=== PATIENT | male | born 1960 | race Caucasian/White ===

== ENCOUNTER 2020-01-02 10:55 | Day surgery (SDC) | payer OTHER ==
[~2020-01-02] VITALS: Ht 172.7 cm; Wt 87.1 kg
[~2020-01-02 10:55] MED LIST: ATOR1TAB19 PO; FLOM0.4C39 PO; GABA-1171 PO; META1TAB22 PO; OMEP40CA97 PO; QC A650T3 PO; TIZA2CAP PO; TRAM50TA2 PO; TRAZ-252 PO
[2020-01-02] MEDS ORDERED: NS 1,000 ML IV ONE (11:45)
[2020-01-02] MEDS ORDERED: LIDOCAINE 2% 100MG/5ML SDV (FOR ANES.) As Ordered ONE (12:28)
[2020-01-02] MEDS ORDERED: propofoL 200 MG/20 ML VIAL As Ordered ONE ×2 (12:28→12:56)
--- NOTE | 2020-01-02 12:59 | ROOR ---
Patient Name: Aric Bain Procedure Date: 01/02/2020 12:35 PM Date of : 1960 Age: 59 Room: [facility] Gender: Male Note Status: Finalized Procedure: Total Colonoscopy to Cecum Indications: Screening for colorectal malignant neoplasm Providers: Catracho Haq MD Referring MD: MARIYA CASTRO MD Requesting Provider: Medicines: Monitored Anesthesia Care Complications: No immediate complications. Procedure: Pre-Anesthesia Assessment: - The heart rate, respiratory rate, oxygen saturations, blood pressure, adequacy of pulmonary ventilation, and response to care were monitored throughout the procedure. The Colonoscope was introduced through the anus and advanced to the cecum, identified by appendiceal orifice and ileocecal valve. The colonoscopy was performed without difficulty. The patient tolerated the procedure well. The quality of the bowel preparation was excellent. Findings: The perianal and digital rectal examinations were normal. Non-bleeding internal hemorrhoids were found during retroflexion. The hemorrhoids were small and Grade I (internal hemorrhoids that do not prolapse). Scattered small-mouthed diverticula were found in the recto-sigmoid colon, sigmoid colon and descending colon. The exam was otherwise without abnormality on direct and retroflexion views. Impression: - Non-bleeding internal hemorrhoids. - Diverticulosis in the recto-sigmoid colon, in the sigmoid colon and in the descending colon. - The examination was otherwise normal on direct and retroflexion views. - No specimens collected. - The exam was otherwise normal to the cecum. Recommendation: - Patient has a contact number available for emergencies. The signs and symptoms of potential delayed complications were discussed with the patient. Return to normal activities tomorrow. Written discharge instructions were provided to the patient. - High fiber diet. - Discharge patient to home. - Continue present medications. - Repeat colonoscopy in 10 years for screening purposes. - Return to referring physician. - The findings and recommendations were discussed with the patient. Catracho Haq MD Catracho Haq MD 01/02/2020 12:58:17 PM Electronically signed by Catracho Haq MD Number of Addenda: 0 Note Initiated On: 01/02/2020 12:35 PM Estimated Blood Loss: Estimated blood loss: none.
[2020-01-02 13:44] VITALS: BP 123/75
== END 2020-01-02 13:47 | disposition home or self-care (01) ==
LOC: M OPP 10:55
PROVIDERS: ATTEND Internal Medicine Gastroenterology
DX: Z12.11 Encounter for screening for malignant neoplasm of colon (principal); K64.0 First degree hemorrhoids; K57.30 Diverticulosis of large intestine without perforation or abscess without bleeding; E78.5 Hyperlipidemia, unspecified; R12 Heartburn; Z79.899 Other long term (current) drug therapy

== ENCOUNTER 2020-02-28 10:54 | Emergency (ER) | payer OTHER ==
[~2020-02-28] VITALS: Ht 172.7 cm; Wt 86.4 kg
[2020-02-28 11:57] LABS: BASO % 0.5 % (0.0-1.0); EOS # 0.5 10^3/uL (0.0-0.5); EOS % 6.1 % (0.0-3.0); HEMATOCRIT 41.6 % (42.0-52.0); HEMOGLOBIN 13.4 g/dl (13.5-17.5); LYMPH # 1.3 10^3/uL (1.5-5.0); LYMPH % 17.5 % (24.0-44.0); MEAN CORPUSCULAR HEMOGLOBIN 28.6 pg (27.0-33.0); MEAN CORPUSCULAR HGB CONC 32.2 g/dl (32.0-36.5); MEAN CORPUSCULAR VOLUME 88.9 fl (80.0-96.0); MONO # 1.1 10^3/uL (0.0-0.8); MONO % 14.7 % (0.0-5.0); NEUTROPHILS # 4.5 10^3/uL (1.5-8.5); NEUTROPHILS % 60.8 % (36.0-66.0); PLATELET COUNT, AUTOMATED 288 10^3/uL (150-450); RED BLOOD COUNT 4.68 10^6/uL (4.30-6.10); WHITE BLOOD COUNT 7.4 10^3/uL (4.0-10.0)
[2020-02-28] MEDS ORDERED: ACETAMINOPHEN TAB 650MG DOSE (2X325MG) PO ONE (12:00)
[2020-02-28 12:26] LABS: ALBUMIN 3.3 GM/DL (3.2-5.2); ALT/SGPT 25 U/L (12-78); BILIRUBIN,DIRECT 0.2 MG/DL (0.0-0.2); BILIRUBIN,TOTAL 0.7 MG/DL (0.2-1.0); BLOOD UREA NITROGEN 15 MG/DL (7-18); CALCIUM LEVEL 9.1 MG/DL (8.8-10.2); CARBON DIOXIDE LEVEL 28 MEQ/L (21-32); CHLORIDE LEVEL 104 MEQ/L (98-107); CK-MB VALUE MASS < 1.0 NG/ML (<3.6); CPK CREATINE PHOSPHOKINASE 80 U/L (39-308); CREATININE FOR GFR 0.95 MG/DL (0.70-1.30); GLOMERULAR FILTRATION RATE > 60.0 (>49); GLUCOSE, FASTING 105 MG/DL (70-100); MB/CK RELATIVE INDEX 1.25 (< OR =4); NT-PRO BNP 1501 PG/ML (<125); POTASSIUM SERUM 4.2 MEQ/L (3.5-5.1); SODIUM LEVEL 136 MEQ/L (136-145); TOTAL PROTEIN 6.5 GM/DL (6.4-8.2); TROPONIN I 0.15 NG/ML (< 0.10)
--- NOTE | 2020-02-28 13:52 | REP ---
INDICATION: DYSPNEA/COUGH. COMPARISON: None. TECHNIQUE: Sitting AP portable radiograph. FINDINGS: The lungs are symmetrically aerated and free of infiltrate. Pleural angles are sharp. Heart is not enlarged. Pulmonary vasculature is not increased. Oxygen tubing and monitoring electrodes are visible. The aorta is slightly tortuous. No significant bony abnormality. IMPRESSION: No active cardiopulmonary disease. <Electronically signed by George Castrejon > 02/28/20 [id number]
[2020-02-28 14:59] LABS: CK-MB VALUE MASS < 1.0 NG/ML (<3.6); CPK CREATINE PHOSPHOKINASE 78 U/L (39-308); MB/CK RELATIVE INDEX 1.28 (< OR =4); TROPONIN I 0.15 NG/ML (< 0.10)
[2020-02-28] MEDS ORDERED: ISOVUE-370 76% 100ML VIAL As Ordered ONE (15:35)
--- NOTE | 2020-02-28 16:16 | REP ---
INDICATION: sob, travel, fever. COMPARISON: None TECHNIQUE: [address] angio chest attention pulmonary arteries FINDINGS: There is excellent visualization of the pulmonary arterial vasculature. No focal filling defects are present that would be considered consistent with acute pulmonary emboli. The thoracic aorta is within normal limits. There is bilateral hilar adenopathy which is mild. There is no mediastinal adenopathy. There are no pleural or pericardial effusions. The imaged upper abdomen is within normal limits. The imaged osseous structures are within normal limits. Evaluation of the lung gan shows bilateral lower lobe patchy opacities. IMPRESSION: 1. There is no evidence of a pulmonary embolus. 2. Bibasilar opacities suggestive of subsegmental atelectasis/pneumonia/basilar fibrotic change. 3. There is no other significant lung field abnormality. <Electronically signed by Samuel Batista > 02/28/20 0123
--- NOTE | 2020-02-28 17:07 | ECGEPIP ---
[facility] - ED Test Date: 2020-02-28 Pat Name: KUSH TINEO Department: Room: - Gender: Male Pediatric Care Coordinator: : 1960 Requested By: ANTONIA Gonzalez Order Number: [id number] Reading MD: Katelyn Chen Measurements Intervals [place] Rate: 77 P: 42 NV: 161 QRS: 6 QRSD: 88 T: 36 QT: 374 QTc: 425 Interpretive Statements SINUS RHYTHM WITH SINUS ARRHYTHMIA NSTTW abnormalities NO PRIOR Electronically Signed on 02-28-2020 17:06:54 EST by Katelyn Chen
--- NOTE | 2020-02-28 17:09 | ECGEPIP ---
[facility] - ED Test Date: 2020-02-28 Pat Name: KUSH TINEO Department: Room: - Gender: Male Director Of Procurement: : 1960 Requested By: ANTONIA Gonzalez Order Number: [id number] Reading MD: Katelyn Chen Measurements Intervals [place] Rate: 80 P: 44 CO: 169 QRS: 5 QRSD: 90 T: 38 QT: 388 QTc: 448 Interpretive Statements SINUS RHYTHM NONSPECIFIC T-WAVE ABNORMALITY SIMILAR 02/28/20 Electronically Signed on 02-28-2020 17:09:31 EST by Katelyn Chen
[2020-02-28] MEDS ORDERED: AZITHROMYCIN 250MG TABLET PO ONE (17:15)
[2020-02-28] MEDS ORDERED: CEFDINIR 300 MG CAP (OMNICEF) PO ONE (17:15)
[2020-02-28] MEDS ORDERED: AZIT500T5 PO (17:17)
[2020-02-28] MEDS ORDERED: CEFD300CAP PO (17:17)
[2020-02-28 17:43] VITALS: BP 115/67
== END 2020-02-28 17:47 | disposition home or self-care (01) ==
LOC: M ED 10:54 → EDBD 10:54 → M ED 17:47
DX: J18.9 Pneumonia, unspecified organism (principal); E78.5 Hyperlipidemia, unspecified; M54.9 Dorsalgia, unspecified; Z79.899 Other long term (current) drug therapy
CPT/HCPCS: 71045; 71275; 80048; 80076; 82550; 82553; 83880; 84484; 85025; 87486; 87581; 87633; 87798; 93005; 93041; 94760; 99285; Q9967

== ENCOUNTER → 2020-03-20 | Outpatient (CLI) | payer OTHER, MEDICARE ==
[~2020-03-20] MED LIST changes: +AZIT500T5 PO; +CEFD300CAP PO
== END ==
LOC: M PAIN 08:30
PROVIDERS: ATTEND Nurse Practitioner Family
DX: Z53.29 Procedure and treatment not carried out because of patient's decision for other reasons (principal)

== ENCOUNTER → 2020-03-21 | Outpatient (REF) | payer OTHER, MEDICARE | LOC: M LAB 22:00 | PROVIDERS: ATTEND Physician Assistant | DX: Z20.828 Contact with and (suspected) exposure to other viral communicable diseases (principal) ==